=== PATIENT | male | born 1965 | race Caucasian/White ===

== ENCOUNTER 2016-06-22 09:12 | Outpatient (RCR) | payer BC ==
[2016-05-11 11:38] LABS: BASOPHILS % (AUTO) 0 % (0-10); EOSINOPHILS # (AUTO) 0.2 10^3/uL (0.0-0.3); EOSINOPHILS % (AUTO) 5 % (0-10); LYMPHOCYTES # (AUTO) 1.5 X 10^3 (1.0-4.0); LYMPHOCYTES % (AUTO) 31 % (12-44); MEAN CORPUSCULAR HEMOGLOBIN 34 PG (25-34); MEAN CORPUSCULAR HGB CONC 35 G/DL (32-36); MEAN CORPUSCULAR VOLUME 98 FL (80-99); MEAN PLATELET VOLUME 9.3 FL (7.4-10.4); MONOCYTES # (AUTO) 0.6 X 10^3 (0.0-1.0); MONOCYTES % (AUTO) 12 % (0-12); NEUTROPHILS # (AUTO) 2.5 X 10^3 (1.8-7.8); NEUTROPHILS % (AUTO) 53 % (42-75); PLATELET COUNT 209 10^3/uL (130-400); RED BLOOD COUNT 4.53 10^6/uL (4.35-5.85); RED CELL DISTRIBUTION WIDTH 13.4 % (10.0-14.5); WHITE BLOOD COUNT 4.8 10^3/uL (4.3-11.0)
[2016-05-11 11:58] LABS: ALANINE AMINOTRANSFERASE 41 U/L (0-55); ANION GAP 8 MMOL/L (5-14); ASPARTATE AMINO TRANSFERASE 23 U/L (5-34); BILIRUBIN,TOTAL 0.5 MG/DL (0.1-1.0); BLOOD UREA NITROGEN 10 MG/DL (7-18); BUN/CREATININE RATIO 9; CALCIUM 8.9 MG/DL (8.5-10.1); CARBON DIOXIDE 28 MMOL/L (21-32); CHLORIDE 105 MMOL/L (98-107); CREATININE SERUM 1.07 MG/DL (0.60-1.30); GFR ESTIMATED > 60; GLUCOSE 88 MG/DL (70-105); POTASSIUM 4.5 MMOL/L (3.6-5.0); SODIUM 141 MMOL/L (135-145); TOTAL PROTEIN 6.6 G/DL (6.4-8.2)
[2016-05-13 12:11] LABS: FACTOR 5 (LEIDEN) MUTATION Negative (Negative)
[2016-05-16 06:33] LABS: FACTOR 5 LEIDEN INTERP See Footnote
[2016-05-16 06:46] LABS: FACTOR II 20210 MUTATIONC Negative
[2016-06-22 10:44] LABS: INR 2.8 (0.8-1.4); PROTHROMBIN TIME PATIENT 29.5 SEC (12.2-14.7)
[2016-06-23 07:53] LABS: HOMOCYSTEINE 30.5 umol/L (<=10.3)
[2016-06-27 08:07] LABS: METHYLMALONIC ACID 0.26 umol/L (0.00-0.40)
== END 2016-08-08 14:22 | disposition home or self-care (01) ==
LOC: ONC 09:12
PROVIDERS: ATTEND Internal Medicine Hematology & Oncology
DX: D75.9 Disease of blood and blood-forming organs, unspecified (principal)
CPT/HCPCS: 36415; 80053; 81240; 81241; 83090; 83921; 85025; 85610; 99213; 99214

== ENCOUNTER 2016-09-05 12:33 | Outpatient (RCR) | payer SELFPAY ==
--- OUTSIDE RECORDS SUMMARY | 2016-08-08 14:28 | XMS REPORT | Continuity of Care Document ---
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 Medications No medication information available. Social History Social History Problem Response Recorded Date/Time Recent Foreign Travel N [place] 05/19/2016 1:34pm Hospital Discharge Instructions No hospital discharge instructions. Plan of Care Prescriptions See Medication Section Functional Status No functional status results. Allergies, Adverse Reactions, Alerts No known allergies. Immunizations No immunization records. Vital Signs No known vital signs results. Results Laboratory Results Test Name Result Units Flags Reference Collection Date/Time Result Date/ Time Comments White Blood Count 4.8 10^3/uL 4.3-11.0 05/11/2016 11:14am 05/11/2016 11 :40am Red Blood Count 4.53 10^6/uL 4.35-5.85 05/11/2016 11:14am 05/11/2016 11 :40am Hemoglobin 15.4 G/DL 13.3-17.7 05/11/2016 11:14am 05/11/2016 11:40am Hematocrit 44 % 40-54 05/11/2016 11:14am 05/11/2016 11:40am Mean Corpuscular Volume 98 FL 80-99 05/11/2016 11:14am 05/11/2016 11: 40am Mean Corpuscular Hemoglobin 34 PG 25-34 05/11/2016 11:14am 05/11/2016 11:40am Mean Corpuscular Hemoglobin Concent 35 G/DL 32-36 05/11/2016 11:14am 11:40am Red Cell Distribution Width 13.4 % 10.0-14.5 05/11/2016 11:14am 2015 11:40am Platelet Count 209 10^3/uL 130-400 05/11/2016 11:14am 05/11/2016 11: 40am Mean Platelet Volume 9.3 FL 7.4-10.4 05/11/2016 11:14am 05/11/2016 11: 40am Neutrophils (%) (Auto) 53 % 42-75 05/11/2016 11:14am 05/11/2016 11: 40am Lymphocytes (%) (Auto) 31 % 12-44 05/11/2016 11:14am 05/11/2016 11: 40am Monocytes (%) (Auto) 12 % 0-12 05/11/2016 11:14am 05/11/2016 11:40am Eosinophils (%) (Auto) 5 % 0-10 05/11/2016 11:14am 05/11/2016 11:40am Basophils (%) (Auto) 0 % 0-10 05/11/2016 11:14am 05/11/2016 11:40am Neutrophils # (Auto) 2.5 X 10^3 1.8-7.8 05/11/2016 11:14am 05/11/2016 11:40am Lymphocytes # (Auto) 1.5 X 10^3 1.0-4.0 05/11/2016 11:14am 05/11/2016 11:40am Monocytes # (Auto) 0.6 X 10^3 0.0-1.0 05/11/2016 11:14am 05/11/2016 11: 40am Eosinophils # (Auto) 0.2 10^3/uL 0.0-0.3 05/11/2016 11:14am 05/11/2016 11:40am Basophils # (Auto) 0.0 10^3/uL 0.0-0.1 05/11/2016 11:14am 05/11/2016 11 :40am Prothrombin Time 29.5 SEC H 12.2-14.7 06/22/2016 10:23am 06/22/2016 10: 47am INR Comment 2.8 H 0.8-1.4 06/22/2016 10:23am 06/22/2016 10:47am INTERPRETIVE DATA SUGGESTED THERAPEUTIC RANGE FOR INR'S: VENOUS THROMBOSIS, PULMONARY EMBOLISM, OR PREVENTION OF SYSTEMIC EMBOLISM (EG. IN ATRIAL FIBRILLATION): 2.0 - 3.0 MECHANICAL PROSTHETIC HEART VALVES: 2.5 - 3.5* *NOTE: INR'S UP TO 4.5 MAY BE NECESSARY IN SELECTED GROUPS OF HIGH RISK PATIENTS. [employer] CONSENSUS CONFERENCE ON ANTITHROMBOTIC THERAPY (2000). Sodium Level 141 MMOL/L 135-145 05/11/2016 11:14am 05/11/2016 12:01pm Potassium Level 4.5 MMOL/L 3.6-5.0 05/11/2016 11:14am 05/11/2016 12: 01pm Chloride Level 105 MMOL/L 98-107 05/11/2016 11:14am 05/11/2016 12:01pm Carbon Dioxide Level 28 MMOL/L 21-32 05/11/2016 11:14am 05/11/2016 12: 01pm Anion Gap 8 MMOL/L 5-14 05/11/2016 11:14am 05/11/2016 12:01pm Blood Urea Nitrogen 10 MG/DL 7-18 05/11/2016 11:14am 05/11/2016 12: 01pm Creatinine 1.07 MG/DL 0.60-1.30 05/11/2016 11:14am 05/11/2016 12:01pm BUN/Creatinine Ratio 9 05/11/2016 11:14am 05/11/2016 12:01pm Estimat Glomerular Filtration Rate > 60 05/11/2016 11:14am 2015 12:01pm GFR INTERPRETIVE DATA UNITS FOR ESTIMATED GFR (eGFR): mL/min/1.73 M2 REFERENCE RANGE FOR ESTIMATED GFR (eGFR) eGFR NORMAL eGFR >60 MODERATELY DECREASED eGFR 30-59 SEVERLY DECREASED eGFR 15-29 KIDNEY FAILURE <15 (OR DIALYSIS) Glucose Level 88 MG/DL 70-105 05/11/2016 11:14am 05/11/2016 12:01pm Calcium Level 8.9 MG/DL 8.5-10.1 05/11/2016 11:14am 05/11/2016 12:01pm Total Bilirubin 0.5 MG/DL 0.1-1.0 05/11/2016 11:14am 05/11/2016 12: 01pm Alkaline Phosphatase 85 U/L 40-136 05/11/2016 11:14am 05/11/2016 12: 01pm Aspartate Amino Transf (AST/SGOT) 23 U/L 5-34 05/11/2016 11:14am 2015 12:01pm Alanine Aminotransferase (ALT/SGPT) 41 U/L 0-55 05/11/2016 11:14am 12:01pm Total Protein 6.6 G/DL 6.4-8.2 05/11/2016 11:14am 05/11/2016 12:01pm Albumin 4.0 G/DL 3.2-4.5 05/11/2016 11:14am 05/11/2016 12:01pm Homocysteine 30.5 umol/L H <=10.3 06/22/2016 10:23am 06/23/2016 7:53am Test performed at [facility], CLIA# [id number] [facility] [place] [address] Methylmalonic Acid 0.26 umol/L 0.00-0.40 06/22/2016 10:23am 06/27/2016 8:07am INTERPRETIVE INFORMATION: MMA Serum/Plasma, Metabolic Disorder Test developed and characteristics determined by [facility]. See Compliance Statement B: [employer] Performed by [facility], [address] [place] [id number] [email or web address], Timothy Lopez MD - Lab. Director Factor V Leiden Mutation Negative Negative 05/11/2016 11:14am 2015 6:33am Factor V Leiden Interpretation See Footnote 05/11/2016 11:14am 6:33am Negative study, Normal Wild Type (no mutant alleles detected) for the Factor V Leiden gene mutations (see comment).This test is approximately 99% accurate. However, a negative result for any genetic test does not entirely rule out the possibility that this individual could be a carrier of a mutation not detected by this test. Genotypic false negative results may arise from trace contamination of reactions and from rare genetic variants that interfere with analysis. We encourage the physician to consider genetic counseling if deemed clinically necessary. Genomic DNA was prepared from submitted whole blood. Using [employer] Exon 10 of the Factor V gene localized on chromosome 1 was analyzed using a non-PCR signal amplification method utilizing an enzymatic hybridization mismatch recognition step with a fluorescent allele-specific probe for the point mutation at nucleotide position [id number] in the Factor V gene. Test performed at [facility], CLIA# [id number] [place] [address] Factor II (Prothrombin) Mutation Negative 05/11/2016 11:14am 2015 6:46am Interpretation: Negative study, Normal Wild Type (no mutant alleles detected) for the prothrombin gene mutation (see comment). This test is approximately 99% accurate. However, a negative result for any genetic test does not entirely rule out the possibility that this individual could be a carrier of a mutation not detected by this test. Genotypic false negative results may arise from trace contamination of reactions and from rate genetic variants that interfere with analysis. We encourage the physician to consider genetic counseling if deemed clinically necessary. Interpretive Data: The prothrombin gene (Factor II) is localized on chromosome 11. A point mutation of G to A at nucleotide position 05089 of the prothrombin gene (PG) defines the prothrombin gene mutation. Genomic DNA was prepared from submitted whole blood. Using the [employer] the 3' untranslated region of the prothrombin gene located on chromosome 11 was analyzed using a non-PCR signal amplification method utilizing an enzymatic hybridization mismatch recognition step with a fluorescent allele-specific probe for the guanine to adenine point mutation at nucleotide position [id number] defining the prothrombin gene mutation. Procedures No known history of procedures. Encounters Encounter Location Arrival/Admit Date Discharge/Depart Date Attending Provider Discharged [facility] 06/22/16 9:12am 2:22pm CHEO RAMOS
[2016-08-08 15:38] LABS: INR 3.3 (0.8-1.4); PROTHROMBIN TIME PATIENT 33.1 SEC (12.2-14.7)
[2016-09-05 14:25] LABS: INR 2.4 (0.8-1.4); PROTHROMBIN TIME PATIENT 26.3 SEC (12.2-14.7)
== END 2016-11-06 | disposition home or self-care (01) ==
LOC: ONC 12:33
PROVIDERS: ATTEND Internal Medicine Hematology & Oncology
DX: D75.9 Disease of blood and blood-forming organs, unspecified (principal)
CPT/HCPCS: 36415; 85610; 99213

== ENCOUNTER 2017-09-26 12:47 | Outpatient (RCR) | payer SELFPAY ==
[2017-09-26 13:00] LABS: BASOPHILS % (AUTO) 1 % (0-10); EOSINOPHILS # (AUTO) 0.3 10^3/uL (0.0-0.3); EOSINOPHILS % (AUTO) 5 % (0-10); HEMATOCRIT 43 % (40-54); HEMOGLOBIN 15.4 G/DL (13.3-17.7); LYMPHOCYTES # (AUTO) 1.6 X 10^3 (1.0-4.0); LYMPHOCYTES % (AUTO) 26 % (12-44); MEAN CORPUSCULAR HEMOGLOBIN 34 PG (25-34); MEAN CORPUSCULAR HGB CONC 36 G/DL (32-36); MEAN CORPUSCULAR VOLUME 95 FL (80-99); MEAN PLATELET VOLUME 9.1 FL (7.4-10.4); MONOCYTES # (AUTO) 0.6 X 10^3 (0.0-1.0); MONOCYTES % (AUTO) 10 % (0-12); NEUTROPHILS # (AUTO) 3.7 X 10^3 (1.8-7.8); NEUTROPHILS % (AUTO) 59 % (42-75); PLATELET COUNT 227 10^3/uL (130-400); RED BLOOD COUNT 4.57 10^6/uL (4.35-5.85); RED CELL DISTRIBUTION WIDTH 13.3 % (10.0-14.5); WHITE BLOOD COUNT 6.3 10^3/uL (4.3-11.0)
[2017-09-26 13:18] LABS: ALANINE AMINOTRANSFERASE 58 U/L (0-55); ALKALINE PHOSPHATASE 79 U/L (40-136); BILIRUBIN,TOTAL 0.4 MG/DL (0.1-1.0); BUN/CREATININE RATIO 10; CARBON DIOXIDE 27 MMOL/L (21-32); CHLORIDE 107 MMOL/L (98-107); GFR ESTIMATED > 60; GLUCOSE 114 MG/DL (70-105); POTASSIUM 3.8 MMOL/L (3.6-5.0); SODIUM 139 MMOL/L (135-145)
== END 2017-12-25 | disposition home or self-care (01) ==
LOC: ONC 12:47
PROVIDERS: ATTEND Internal Medicine Hematology & Oncology
DX: E72.12 Methylenetetrahydrofolate reductase deficiency (principal); D68.59 Other primary thrombophilia; I87.8 Other specified disorders of veins; Z86.718 Personal history of other venous thrombosis and embolism; Z79.01 Long term (current) use of anticoagulants; Z79.82 Long term (current) use of aspirin; Z79.899 Other long term (current) drug therapy
CPT/HCPCS: 36415; 80053; 85025; 99213

== ENCOUNTER 2019-05-09 10:38 | Outpatient (RCR) | payer MEDICARE, OTHER ==
[2019-05-09 10:43] LABS: BASOPHILS % (AUTO) 1 % (0-10); EOSINOPHILS # (AUTO) 0.3 10^3/uL (0.0-0.3); EOSINOPHILS % (AUTO) 6 % (0-10); HEMATOCRIT 44 % (40-54); LYMPHOCYTES # (AUTO) 1.8 X 10^3 (1.0-4.0); LYMPHOCYTES % (AUTO) 35 % (12-44); MEAN CORPUSCULAR HEMOGLOBIN 34 PG (25-34); MEAN CORPUSCULAR HGB CONC 34 G/DL (32-36); MEAN CORPUSCULAR VOLUME 98 FL (80-99); MEAN PLATELET VOLUME 9.1 FL (7.4-10.4); MONOCYTES # (AUTO) 0.5 X 10^3 (0.0-1.0); MONOCYTES % (AUTO) 11 % (0-12); NEUTROPHILS # (AUTO) 2.5 X 10^3 (1.8-7.8); NEUTROPHILS % (AUTO) 48 % (42-75); PLATELET COUNT 230 10^3/uL (130-400); WHITE BLOOD COUNT 5.2 10^3/uL (4.3-11.0)
[2019-05-09 11:02] LABS: ALANINE AMINOTRANSFERASE 24 U/L (0-55); ALBUMIN 3.8 GM/DL (3.2-4.5); ALKALINE PHOSPHATASE 78 U/L (40-136); BILIRUBIN,TOTAL 0.4 MG/DL (0.1-1.0); BUN/CREATININE RATIO 10; CALCIUM 8.5 MG/DL (8.5-10.1); CARBON DIOXIDE 24 MMOL/L (21-32); CHLORIDE 107 MMOL/L (98-107); CREATININE SERUM 1.21 MG/DL (0.60-1.30); GFR ESTIMATED > 60; GLUCOSE 92 MG/DL (70-105); SODIUM 141 MMOL/L (135-145); TOTAL PROTEIN 6.8 GM/DL (6.4-8.2)
== END 2019-08-07 | disposition home or self-care (01) ==
LOC: ONC 10:38
PROVIDERS: ATTEND Internal Medicine Hematology & Oncology
DX: E72.12 Methylenetetrahydrofolate reductase deficiency (principal); D68.59 Other primary thrombophilia; I87.8 Other specified disorders of veins; Z86.718 Personal history of other venous thrombosis and embolism; Z79.01 Long term (current) use of anticoagulants; Z79.82 Long term (current) use of aspirin; Z79.899 Other long term (current) drug therapy
CPT/HCPCS: 36415; 80053; 85025; 99213

== ENCOUNTER → 2020-04-17 | Outpatient (CLI) | payer MEDICARE ==
[2020-04-17 13:30] LABS: BASOPHILS % (AUTO) 0 % (0-10); EOSINOPHILS # (AUTO) 0.1 10^3/uL (0.0-0.3); EOSINOPHILS % (AUTO) 1 % (0-10); HEMATOCRIT 46 % (40-54); HEMOGLOBIN 15.7 g/dL (13.3-17.7); LYMPHOCYTES # (AUTO) 2.6 10^3/uL (1.0-4.0); LYMPHOCYTES % (AUTO) 31 % (12-44); MEAN CORPUSCULAR HEMOGLOBIN 35 pg (25-34); MEAN CORPUSCULAR HGB CONC 34 g/dL (32-36); MEAN CORPUSCULAR VOLUME 102 fL (80-99); MEAN PLATELET VOLUME 8.6 fL (9.0-12.2); MONOCYTES # (AUTO) 0.5 10^3/uL (0.0-1.0); MONOCYTES % (AUTO) 6 % (0-12); NEUTROPHILS % (AUTO) 61 % (42-75); PLATELET COUNT 286 10^3/uL (130-400); WHITE BLOOD COUNT 8.3 10^3/uL (4.3-11.0)
[2020-04-17 13:57] LABS: ALANINE AMINOTRANSFERASE 24 U/L (0-55); ALKALINE PHOSPHATASE 95 U/L (40-136); BILIRUBIN,TOTAL 0.5 MG/DL (0.1-1.0); BUN/CREATININE RATIO 10; CALCIUM 8.9 MG/DL (8.5-10.1); CARBON DIOXIDE 23 MMOL/L (21-32); CHLORIDE 104 MMOL/L (98-107); GFR ESTIMATED > 60; GLUCOSE 117 MG/DL (70-105); POTASSIUM 4.1 MMOL/L (3.6-5.0); SODIUM 139 MMOL/L (135-145); TOTAL PROTEIN 7.2 GM/DL (6.4-8.2)
== END ==
LOC: EDSTATUS 08-08 15:02 → ONC 13:21
PROVIDERS: ATTEND Internal Medicine Hematology & Oncology
DX: E72.12 Methylenetetrahydrofolate reductase deficiency (principal); I82.402 Acute embolism and thrombosis of unspecified deep veins of left lower extremity; D68.59 Other primary thrombophilia; Z86.718 Personal history of other venous thrombosis and embolism; Z79.01 Long term (current) use of anticoagulants; M79.89 Other specified soft tissue disorders
CPT/HCPCS: 80053; 85025; G0463; 99213